=== PATIENT | male | born 1970 | race African-American/Black ===

== ENCOUNTER 2021-07-20 07:28 | Emergency (ER) | payer OTHER, SELFPAY ==
--- NOTE | ~2021-07-20 | XR_ITS ---
EXAMINATION: XR chest 1V portable DATE: 07/20/2021 08:00 INDICATION: Lower limb edema. TECHNIQUE: A single frontal view of the chest was obtained. COMPARISON: None. FINDINGS: There is no pneumonia, pleural effusion, or pneumothorax. Cardiomegaly is noted. There is a left chest pacer/defibrillator with leads in right atrium and right ventricle. IMPRESSION: 1. Cardiomegaly. Reviewed, dictated and finalized at location A. FISHER IMPRESSION: 1. Cardiomegaly.
[2021-07-20 07:30] VITALS: BP 93/69; PULSE 96; RESP 18; TEMP 36.5; O2SAT 99
--- NOTE | 2021-07-20 07:35 | ECG_ITS ---
Measurements Intervals [place] Rate: 96 P: 62 [place]: 184 QRS: -58 QRSD: 155 T: 112 QT: 393 QTc: 499 Interpretive Statements SINUS RHYTHM LEFT ATRIAL ENLARGEMENT [-0.15mV P WAVE IN V1/V2] MARKED LEFT AXIS DEVIATION [QRS AXIS < -30] CANNOT RULE OUT ANTERIOR OR, AGE INDETERMINATE INTRAVENTRICULAR CONDUCTION DELAY [130+ ms QRS DURATION] ABNORMAL ECG NO PREVIOUS ECG AVAILABLE FOR COMPARISON Electronically Signed On 07-21-2021 13:50:02 PHARMACY TEACHER by Lavell Holt M.D.
[2021-07-20 07:45] VITALS: BP 100/83; O2SAT 100
[2021-07-20 07:50] LABS: Basophils Absolute Auto 0.1 K/mm3 (0.0-0.1); Basophils Percent Auto 0.7 % (0.2-1.2); Eosinophils Percent Auto 0.3 % (0-4.4); Hematocrit 37.1 % (42.0-52.0); Hemoglobin 13.1 g/dL (14.0-18.0); Immature Granulocyte Absolute 0.08 K/mm3 (0.00-0.031); Immature Granulocyte Percent A 0.8 % (0-0.5); Lymphocytes Absolute Auto 1.53 K/mm3 (0.9-3.2); Lymphocytes Percent Auto 16.1 % (18.3-44.2); Mean Corpuscular HGB Conc 35.3 g/dl (32-36); Mean Corpuscular Hemoglobin 28.5 pg (26-34); Mean Corpuscular Volume 80.7 fl (80-100); Mean Platelet Volume 10.7 fl (7.4-10.4); Monocytes Absolute Auto 1.1 K/mm3 (0.1-0.6); Monocytes Percent Auto 11.1 % (2.6-8.5); Neutrophils Absolute Auto 6.7 K/mm3 (1.3-6.7); Nucleated Red Blood Cells Perc 0.2 % (0.0-0.2); Platelet Count Result 262 k/mm3 (150-375); Red Cell Distribution Width 15.6 % (11.5-14.5); White Blood Count 9.5 K/mm3 (4.5-10.0)
--- NOTE | 2021-07-20 07:52 | ED.EXTPRO ---
HPI - Extremity Problem General Chief complaint: Extremity Problem,Nontraumatic Stated complaint: B/L LE swelling Time Seen by Provider: 07/20/21 07:35 Source: patient and EMS Mode of arrival: EMS Limitations: no limitations History of Present Illness HPI Narrative: Patient is 51 years old -[place] male came by ambulance because he did not take his Lasix last night History of congestive heart failure on 60 mg of Lasix every morning and 40 mg every afternoon. Last Lasix intake was yesterday morning. Patient lives in [place], went to visit one of his relatives in our neighborhood woke up this morning with more swelling of the lower extremities. Patient denies any fever, chills, nausea, vomiting, chest pain or shortness of breath Related Data Allergies Allergy/AdvReac Type Severity Reaction Status Date / Time No Known Allergies Allergy Verified 07/20/21 07:36 Review of Systems Review of Systems: CONSTITUTIONAL: Denies fever, chills, or sweats. EYES: Denies visual changes, redness, or discharge. ENT: Denies rhinorrhea, congestion, sore throat, or otalgia. CARDIOVASCULAR: Denies chest pain, palpitations, or edema. RESPIRATORY: Denies cough or dyspnea. GASTROINTESTINAL: Denies abdominal pain, nausea, vomiting, or diarrhea. GENITOURINARY: Denies dysuria or hematuria. SKIN: Denies rash or itching. MUSCULOSKELETAL: Denies back pain, joint pain, or myalgia. NEUROLOGIC: Denies headache, numbness, or weakness. PSYCHIATRIC: Denies anxiety or depression. Exam Narrative: General appearance: Well-developed, well-nourished Skin: 2+ edema lower extremity bilaterally Head: Normocephalic, nontraumatic Eyes: Clear conjunctiva ENT: Oropharynx normal, ears normal, nose normal Neck: Supple, nontender Chest and respiratory: Airway patent, no respiratory distress, no accessory muscle use Heart: Regular rate/rhythm Abdomen: Soft, nontender, no organomegaly, quiet bowel sounds Vascular: Normal peripheral pulses, normal capillary refill. Musculoskeletal: Normal range of motion, nontender back Neurologic: Alert and oriented ?3, AUDIO/VISUAL MANAGER is normal as tested, no gross motor deficit Course Course Emergency Course: Stable Vital Signs Vital signs: Vital Signs Temperature 36.5 C 07/20/21 07:30 Pulse Rate 96 07/20/21 07:30 Respiratory Rate 18 07/20/21 07:30 Blood Pressure 93/69 L 07/20/21 07:30 Pulse Oximetry 99 07/20/21 07:30 Temperature 36.5 C 07/20/21 07:30 Pulse Rate 96 07/20/21 07:30 Respiratory Rate 18 07/20/21 07:30 Blood Pressure 93/69 L 07/20/21 07:30 Pulse Oximetry 99 07/20/21 07:30 MDM - Extremity (Nontraumatic) MDM Narrative Medical decision making narrative: Lower extremity edema secondary to history of chronic CHF Lab Data Result diagrams: 07/20/21 07:43 07/20/21 07:43 Labs: Lab Results 07/20/21 07/20/21 Range/Units 07:43 07:43 WBC 9.5 (4.5-10.0) K/mm3 RBC 4.60 (4.6-6.20) M/mm3 Hgb 13.1 L (14.0-18.0) g/dL Hct 37.1 L (42.0-52.0) % MCV 80.7 (80-100) fl MCH 28.5 (26-34) pg MCHC 35.3 (32-36) g/dl RDW 15.6 H (11.5-14.5) % Plt Count 262 (150-375) k/mm3 MPV 10.7 H (7.4-10.4) fl Immature Gran % (Auto) 0.8 H (0-0.5) % Neut % (Auto) 71.0 (45.5-73.1) % Lymph % (Auto) 16.1 L (18.3-44.2) % Mcmullen % (Auto) 11.1 H (2.6-8.5) % Eos % (Auto) 0.3 (0-4.4) % Baso % (Auto) 0.7 (0.2-1.2) % Lymph # (Auto) 1.53 (0.9-3.2) K/mm3 Mcmullen # (Auto) 1.1 H (0.1-0.6) K/mm3 Eos # (Auto) 0.0 (0-0.3) K/mm3 Baso # (Auto) 0.1 (0.0-0.1) K/mm3 Abs Immat Gran (auto) 0.08 H (0.00-0.031) K/mm3 Absolute Neuts (auto) 6.7 (1.3-6.7) K/mm3 Ab
[2021-07-20 08:01] VITALS: BP 100/79; O2SAT 100
[2021-07-20 08:07] LABS: Alanine Aminotransferase 76 U/L (4-50); Albumin Level 3.2 g/dL (3.5-5.1); Alkaline Phosphatase 130 U/L (38-126); Anion Gap 6 mmol/L (8-16); Aspartate Amino Transferase 56 U/L (17-59); Bilirubin,Total 0.7 mg/dL (0.2-1.3); Blood Urea Nitrogen 31 mg/dL (9-20); Calcium 8.3 mg/dL (8.4-10.2); Carbon Dioxide 29 mmol/L (22-30); Chloride 97 mmol/L (98-107); Estimated CRCL calculation 52 ml/min; Estimated Glomerular Filt Rate > 60; Glucose 118 mg/dL (65-110); Potassium 3.5 mmol/L (3.4-5.0); Sodium 132 mmol/L (137-145)
[2021-07-20 08:19] LABS: NT Pro B Type Natriuretic Pept 9130 pg/mL (5-100); Troponin I 0.027 ng/mL (0.000-0.034)
[2021-07-20 08:24] VITALS: BP 96/76; O2SAT 98
[2021-07-20] MEDS: FUROSEMIDE TABLET 20 MG, FUROSEMIDE TABLET 40 MG 60 MG PO (08:33)
== END 2021-07-20 08:40 | disposition home or self-care (01) ==
PROVIDERS: Emergency Provider Emergency Medicine
DX: I50.9 Heart failure, unspecified (principal); R60.0 Localized edema; I45.9 Conduction disorder, unspecified; R94.31 Abnormal electrocardiogram [ECG] [EKG]
CPT/HCPCS: 36415; 71045; 80053; 83880; 84484; 85025; 93005; 99284; A9270

== ENCOUNTER 2021-07-29 04:25 | Emergency (ER) | payer OTHER, SELFPAY ==
[2021-07-29] VITALS (9 sets, daily range): BP systolic 80–93; BP diastolic 68–72; PULSE 89–94; RESP 17–24; TEMP 36.6; O2SAT 94–100
--- NOTE | ~2021-07-29 | CT_ITS ---
EXAMINATION: CT abdomen pelvis w con DATE: 07/29/2021 05:26 INDICATION: Epigastric and right upper quadrant pain TECHNIQUE: Computed tomography (CT) of the abdomen and pelvis was performed with 100 cc Omnipaque 350 intravenous contrast. The dose-length product was 328.23 mGy-cm. Automated exposure control and iter ative reconstruction technique were employed. COMPARISON: None. FINDINGS: There is lower lobe atelectasis. Cardiomegaly. No significant pleural or pericardial effusi on. There is diffuse subcutaneous edema. No evidence for aortic aneurysm. No significant lymphadenopa thy. There is a small amount of ascites. The liver, spleen, pancreas, adrenal glands and kidneys are unremarkable. No free air. Nonobstructive bowel gas pattern. IMPRESSION: 1. Diffuse subcutaneous edema and ascites, consistent with anasarca. 2: Cardiomegaly. Reviewed, dictated and finalized at location B.
--- NOTE | ~2021-07-29 | XR_ITS ---
EXAMINATION: XR chest 1V portable DATE: 07/29/2021 05:16 INDICATION: Shortness of breath TECHNIQUE: frontal view of the chest was obtained. COMPARISON: Chest radiograph dated 07/20/21 FINDINGS: Unchanged linear band of discoid atelectasis/scarring at the medial right lower lung zone. No other a irspace opacities, pulmonary edema, pleural effusion or pneumothorax. Moderate cardiomegaly. Dual didi d pacemaker/AICD seen with leads projecting over the expected locations of the right atrium and right ventricle. Visualized bones and soft tissues are unremarkable. IMPRESSION: 1. Cardiomegaly Reviewed, dictated and finalized at location A. IMPRESSION: 1. Cardiomegaly
--- NOTE | 2021-07-29 04:27 | ECG_ITS ---
Measurements Intervals [place] Rate: 93 P: 50 [place]: 181 QRS: -52 QRSD: 145 T: 117 QT: 403 QTc: 503 Interpretive Statements SINUS RHYTHM POSSIBLE LEFT ATRIAL ENLARGEMENT [-0.1mV P WAVE IN V1/V2] MARKED LEFT AXIS DEVIATION [QRS AXIS < -30] INTRAVENTRICULAR CONDUCTION DELAY POOR R-WAVE PROGRESSION CANNOT RULE OUT OLD ANTERIOR MS COMPARED TO ECG 07/20/2021 07:36:26 NO SIGNIFICANT CHANGE Electronically Signed On 07-29-2021 18:26:07 CDT by Cinda Triplett M.D.
--- NOTE | 2021-07-29 04:36 | ED.SOB ---
HPI - SOB/Dyspnea General Chief Complaint: Shortness of Breath/Dyspnea Stated Complaint: SOB, ABD PAIN Time Seen by Provider: 07/29/21 04:29 Source: patient History of Present Illness HPI Narrative: Patient presents with shortness of breath and abdominal pain. Reports his symptoms started this evening got progressively worse so he came to ER for evaluation. Reports abdominal pain sharp, constant, no clear aggravating or alleviating factors no radiation and is in his upper abdomen. Reports that shortness of breath sensation of not getting enough air. Denies fevers, chills, cough, congestion, chest pain. He also notes lower extremity edema. Patient reports he has been to multiple hospitals over the past week was most recently admitted to [facility] and discharged 2 days ago. He reports she was initially feeling well until tonight. Related Data Allergies Allergy/AdvReac Type Severity Reaction Status Date / Time No Known Allergies Allergy Verified 07/20/21 07:36 Review of Systems Review of Systems: CONSTITUTIONAL: Denies fever, chills, or sweats. EYES: Denies visual changes, redness, or discharge. ENT: Denies rhinorrhea, congestion, sore throat, or otalgia. CARDIOVASCULAR: Denies chest pain, palpitations, or edema. RESPIRATORY: Denies cough. GASTROINTESTINAL: Denies nausea, vomiting, or diarrhea. GENITOURINARY: Denies dysuria or hematuria. SKIN: Denies rash or itching. MUSCULOSKELETAL: Denies back pain, joint pain, or myalgia. NEUROLOGIC: Denies headache, numbness, dizziness, or weakness. PSYCHIATRIC: Denies anxiety or depression. All systems reviewed & are unremarkable except as noted in HPI and below PMFSH Past Medical History Medical History (Updated 07/29/21 @ 06:37 by Deacon Corea MD) Heart failure Exam Narrative: GENERAL: Well-appearing, well-nourished, and in no acute distress. HEAD: Normocephalic, atraumatic. EYES: PERRLA and EOMI. ENT: Nares clear, no rhinorrhea or epistaxis. Mucous membranes moist. NECK: Supple. No masses. No JVD CHEST: Clear to auscultation. No respiratory distress. No wheezes rales or rhonchi HEART: Regular rate and rhythm. No murmur heard. Normal peripheral pulses. ABDOMEN: Diffuse tenderness upper abdominal most prominent in the epigastric and right upper quadrant soft, nontender, nondistended, normal active bowel sounds. EXTREMITIES: Normal range of motion. 2+ pitting edema in the bilateral lower extremities SKIN: Warm, dry, no rash. NEURO: No focal deficits. Alert and oriented x3. PSYCH: Normal mood and affect. Course Reevaluation(s) Reevaluation #1: Patient reports he is having a hard time breathing unable to get an accurate waveform on pulse oximetry ABG ordered lungs remain clear. No tachycardia present Date: 07/29/21 Time: 05:54 Reevaluation #2: Patient appears improved case discussed with Jessica nurse practitioner with Dr. Suarez's group. Given patient's labs vital signs appear to be at his baseline patient is appropriate for outpatient management he was scheduled for appointment with his home child care provider at 1130 today. Patient is comfortable with the outpatient plan. Patient was noted to have a history of taking extra doses of Lasix he is previously been counseled on that behavior Date: 07/29/21 Time: 06:34 Vital Signs Vital signs: Vital Signs Temperature 36.6 C 07/29/21 04:26 Pulse Rate 94 07/29/21 04:26 Respiratory Rate 24 H 07/29/21 04:26 Blood Pressure 80/68 L 07/29/21 04:26 Pulse Oximetry 96 07/29/21 04:26 Temperature 36.6 C 07/29/21 04:26 Pulse Rate 90 07/29/21 06:05 Respiratory Rate 18 07/29/21 06:05 Blood Pressure 93/72 L 07/29/21 06:05 Pulse Oximetry 94 07/29/21 06:05 MDM - SOB/Dyspnea MDM Narrative Medical decision making narrative: H&P as above, vs initially with hypotension, pt looks clinically well, exam symmetric pitting edema in the lower extremity labs with elevated BNP mild elevation in creatinine, img without
[2021-07-29 04:46] LABS: Basophils Absolute Auto 0.1 K/mm3 (0.0-0.1); Eosinophils Absolute Auto 0.2 K/mm3 (0-0.3); Eosinophils Percent Auto 1.8 % (0-4.4); Hematocrit 36.7 % (42.0-52.0); Hemoglobin 12.6 g/dL (14.0-18.0); Immature Granulocyte Absolute 0.06 K/mm3 (0.00-0.031); Immature Granulocyte Percent A 0.6 % (0-0.5); Lymphocytes Absolute Auto 1.16 K/mm3 (0.9-3.2); Lymphocytes Percent Auto 12.3 % (18.3-44.2); Mean Corpuscular HGB Conc 34.3 g/dl (32-36); Mean Corpuscular Hemoglobin 27.6 pg (26-34); Mean Corpuscular Volume 80.5 fl (80-100); Monocytes Absolute Auto 0.7 K/mm3 (0.1-0.6); Monocytes Percent Auto 7.3 % (2.6-8.5); Neutrophils Absolute Auto 7.3 K/mm3 (1.3-6.7); Nucleated Red Blood Cells Perc 0.2 % (0.0-0.2); Platelet Count Result 203 k/mm3 (150-375); Red Blood Count 4.56 M/mm3 (4.6-6.20); Red Cell Distribution Width 16.4 % (11.5-14.5); White Blood Count 9.4 K/mm3 (4.5-10.0)
[2021-07-29 04:52] LABS: Add Urine Microscopic? YES; Appearance Urine Cloudy (Clear); Bacteria Urine Trace /hpf; Bilirubin Urine 1+ (Negative); Blood Urine Negative (Negative); Color Urine Amber (Yellow); Glucose Urine UA Negative (Negative); Hyaline Casts Urine 20-29 /lpf; Ketones Urine Trace mg/dL (Negative); Leukocyte Esterase Ur Negative LEU/UL (Negative); Mucus Urine Rare /lpf; Nitrate Urine Negative (Negative); Protein Urine 2+ mg/dL (Negative); RBC Urine 0-2 /hpf (0-2); Specific Grav Ur 1.018 (1.001-1.035); Squamous Epithelial Cell Urine Rare /hpf (Few); WBC Urine 0-3 /hpf
[2021-07-29 04:57] LABS: INR 1.2; Partial Thromboplastin Time 29.9 SECONDS (22.3-36.8)
[2021-07-29 05:00] LABS: Alanine Aminotransferase 63 U/L (4-50); Albumin Level 3.1 g/dL (3.5-5.1); Alkaline Phosphatase 150 U/L (38-126); Anion Gap 8 mmol/L (8-16); Aspartate Amino Transferase 53 U/L (17-59); Bilirubin,Total 0.8 mg/dL (0.2-1.3); Blood Urea Nitrogen 35 mg/dL (9-20); Calcium 7.8 mg/dL (8.4-10.2); Carbon Dioxide 26 mmol/L (22-30); Chloride 97 mmol/L (98-107); Estimated CRCL calculation 45 ml/min; Estimated Glomerular Filt Rate 60; Glucose 102 mg/dL (65-110); Lipase 200 U/L (23-300); Sodium 131 mmol/L (137-145)
[2021-07-29 05:08] LABS: NT Pro B Type Natriuretic Pept 8360 pg/mL (5-100)
[2021-07-29] MEDS: SODIUM CHLORIDE 0.9% IV 250 ML 100 ML IV CONT (05:29)
[2021-07-29 06:11] LABS: Alveolar/Arterial O2 Gradient 47.5 mmHg; Base Excess ABG 0.8 mEq/l (+/-2.0); Fractional Inspired Oxygen 21 %; HCO3 ABG 24.8 mEq/l (22.0-26.0); Oxygen Saturation ABG 91.1 % (95.0-100.0); PCO2 ABG 37.3 mmHg (35.0-45.0); PO2 ABG 57.6 mmHg (80.0-100.0); PO2 FiO2 Ratio Arterial Blood 2.74 %
[2021-07-29 06:13] LABS: Device ROOM AIR; Oxyhemoglobin 87.5 % THb (90.0-100.0); Site Drawn RIGHT BRACHIAL
== END 2021-07-29 06:48 | disposition home or self-care (01) ==
PROVIDERS: Emergency Provider Emergency Medicine
DX: I50.42 Chronic combined systolic (congestive) and diastolic (congestive) heart failure (principal); I45.9 Conduction disorder, unspecified; R94.31 Abnormal electrocardiogram [ECG] [EKG]; I51.7 Cardiomegaly; R18.8 Other ascites
CPT/HCPCS: 36415; 36600; 71045; 74177; 80053; 81001; 82805; 83690; 83880; 85025; 85610; 85730; 93005; 96360; 99284; J7050; Q9967